=== PATIENT | female | born 1960 | race Caucasian/White ===

== ENCOUNTER → 2018-09-03 08:07 | Outpatient (CLI) | payer OTHER, SELFPAY | PROVIDERS: PCP Physician Assistant; Visit Provider Physician Assistant | DX: Z12.31 Encounter for screening mammogram for malignant neoplasm of breast (principal); Z53.9 Procedure and treatment not carried out, unspecified reason ==

== ENCOUNTER → 2018-09-29 08:36 | Outpatient (CLI) | payer OTHER, SELFPAY ==
--- NOTE | 2018-09-29 08:37 | DI.MG.S_ITS ---
BILATERAL DIGITAL DIAGNOSTIC MAMMOGRAM 3D/2D: 09/29/2018 CLINICAL: Left breast pain. Comparison is made to exams dated: 01/17/2017 mammogram, 08/05/2015 mammogram, and 04/24/2013 mammogram - [facility]. There are scattered fibroglandular elements in both breasts. There are benign round calcifications in both breasts. No significant masses, calcifications, or other findings are seen in either breast. IMPRESSION: INCOMPLETE: NEEDS ADDITIONAL IMAGING EVALUATION There is no abnormality seen in the left breast to correspond with the area of clinical concern and pain, however, ultrasound is recommended which is scheduled to immediately follow this exam. This exam was interpreted at Station ID: [id number]. NOTE: For mammograms, a report in lay terms will be sent to the patient. Approximately 15% of breast malignancies will not be visualized mammographically. In the management of a palpable breast mass, a negative mammogram must not discourage biopsy of a clinically suspicious lesion. Electronically Signed By: Contreras Cannon M.D. aty/:09/29/2018 09:16:31 copy to: Yazmin DODD BI-RADS Category 0: Incomplete [id number]
--- NOTE | 2018-09-29 08:37 | DI.US.S_ITS ---
LIMITED ULTRASOUND OF LEFT BREAST: 09/29/2018 CLINICAL: Diffuse left breast pain. Comparison is made to exams dated: 09/29/2018 mammogram - [facility], 01/17/2017 mammogram, 08/05/2015 mammogram, and 04/24/2013 mammogram - [facility]. Real-time ultrasound of the left breast upper inner, upper outer, and lower outer quadrants, and retroareolar regions was performed on the area of interest. No discrete cystic or solid mass lesion identified in the area of pain. IMPRESSION: NEGATIVE There is no sonographic evidence of malignancy. There is no abnormality seen in the left breast to correspond with the pain, however, clinical followup is recommended. A 1 year screening mammogram is recommended. This exam was interpreted at Station ID: [id number]. Electronically Signed By: Bhavik chavira/:09/29/2018 11:12:42 copy to: Yazmin Pink letter sent: Clinical Evaluation Ultrasound BI-RADS: 1 Negative
[2018-10-02 15:45] LABS: Rubeola Measles IgG < 25.00 AU/mL (< 25.00)
== END ==
PROVIDERS: PCP Physician Assistant; Visit Provider Physician Assistant
DX: R92.8 Other abnormal and inconclusive findings on diagnostic imaging of breast (principal); N64.4 Mastodynia; Z01.84 Encounter for antibody response examination
CPT/HCPCS: 36415; 76642; 77066; 86765; G0279

== ENCOUNTER → 2021-09-27 10:04 | Outpatient (CLI) | payer OTHER, SELFPAY ==
--- NOTE | 2021-09-27 10:05 | DI.MG.S_ITS ---
BILATERAL DIGITAL DIAGNOSTIC MAMMOGRAM 3D/2D SHORT-TERM FOLLOW-UP: 09/27/2021 CLINICAL: Short term follow up of the left breast, due for bilateral imaging. Comparison is made to exams dated: 08/15/2020 mammogram, 07/26/2020 mammogram - [facility], and 09/29/2018 mammogram - [facility]. There are scattered fibroglandular elements in both breasts. There is a stable focal asymmetry in the left breast at 7 o'clock middle depth. No other significant masses, calcifications, or other findings are seen in either breast. IMPRESSION: PROBABLY BENIGN The stable focal asymmetry in the left breast is probably benign. A follow-up mammogram and possible ultrasound in 12 months is recommended to ensure stability. This exam was interpreted at Station ID: [id number]. NOTE: For mammograms, a report in lay terms will be sent to the patient. Approximately 15% of breast malignancies will not be visualized mammographically. In the management of a palpable breast mass, a negative mammogram must not discourage biopsy of a clinically suspicious lesion. Electronically Signed By: Deandra Hayes M.D. lk/:09/27/2021 11:18:06 copy to: Yazmin Pink letter sent: Followup Recommended ACR BI-RADS Category 3: Probably benign [id number]
== END ==
PROVIDERS: PCP Physician Assistant; Referring Provider Physician Assistant; Visit Provider Physician Assistant
DX: R92.8 Other abnormal and inconclusive findings on diagnostic imaging of breast (principal); N64.89 Other specified disorders of breast
CPT/HCPCS: 77066; G0279

== ENCOUNTER → 2022-07-17 16:34 | Outpatient (CLI) | payer OTHER, SELFPAY ==
--- NOTE | 2022-07-17 | DI.US.S_ITS ---
PROCEDURE: US CAROTID DOPPLER BI INDICATIONS: CAROTID ARTERY CALCIFICATION TECHNIQUE: Color and pulse Doppler interrogation was performed of both carotid systems, with image documentation and velocity measurements. COMPARISON: None. FINDINGS: Stenosis calculations are based on SRU (Society of Radiologists in Ultrasound) criteria. The flow velocities and the arterial waveforms are normal within both carotid arterial systems. Mild atherosclerotic plaque is seen on both sides. The estimated degree of internal carotid artery stenosis is less than 50%. Antegrade flow is confirmed within both vertebral arteries. IMPRESSION: No hemodynamically significant stenosis is seen. Dictated by: Rosendo Valle M.D. on 07/17/2022 at 17:16 Approved by: Rosendo Valle M.D. on 07/17/2022 at 17:17
== END ==
PROVIDERS: PCP Physician Assistant; Referring Provider Physician Assistant; Visit Provider Physician Assistant
DX: I65.29 Occlusion and stenosis of unspecified carotid artery (principal)
CPT/HCPCS: 93880

== ENCOUNTER → 2022-09-21 16:00 | Outpatient (CLI) | payer OTHER, SELFPAY | PROVIDERS: PCP Physician Assistant; Visit Provider Obstetrics & Gynecology | DX: N76.4 Abscess of vulva (principal) | CPT/HCPCS: 87070; 87205 ==

== ENCOUNTER → 2023-12-06 09:08 | Outpatient (CLI) | payer OTHER, MEDICARE, SELFPAY | LOC: WC 09:24 | PROVIDERS: Referring Provider Dermatology; Visit Provider Physician Assistant | DX: T81.31XA Disruption of external operation (surgical) wound, not elsewhere classified, initial encounter (principal); S81.001A Unspecified open wound, right knee, initial encounter; L53.8 Other specified erythematous conditions; D03.9 Melanoma in situ, unspecified | CPT/HCPCS: 11042; 87070; 87075; 87205; 99204; 99214 ==

== ENCOUNTER → 2023-12-20 09:25 | Outpatient (CLI) | payer OTHER, MEDICARE, SELFPAY | PROVIDERS: Referring Provider Dermatology; Visit Provider Physician Assistant | DX: S81.001A Unspecified open wound, right knee, initial encounter (principal); L98.8 Other specified disorders of the skin and subcutaneous tissue; L53.9 Erythematous condition, unspecified; D03.9 Melanoma in situ, unspecified; I10 Essential (primary) hypertension; E87.5 Hyperkalemia | CPT/HCPCS: 11042; 87070; 87075; 87205; 99213 ==

== ENCOUNTER → 2024-01-03 08:36 | Outpatient (CLI) | payer OTHER, MEDICARE, SELFPAY | LOC: WC 08:38 | PROVIDERS: Referring Provider Dermatology; Visit Provider Physician Assistant | DX: T81.89XA Other complications of procedures, not elsewhere classified, initial encounter (principal); S81.001A Unspecified open wound, right knee, initial encounter; L98.8 Other specified disorders of the skin and subcutaneous tissue; L53.9 Erythematous condition, unspecified; D03.9 Melanoma in situ, unspecified | CPT/HCPCS: 11042; 99213 ==

== ENCOUNTER → 2024-01-10 09:42 | Outpatient (CLI) | payer MEDICARE, SELFPAY | LOC: WC 09:45 | PROVIDERS: Referring Provider Dermatology; Visit Provider Physician Assistant | DX: T81.89XA Other complications of procedures, not elsewhere classified, initial encounter (principal); S81.001A Unspecified open wound, right knee, initial encounter; L98.8 Other specified disorders of the skin and subcutaneous tissue; I10 Essential (primary) hypertension; E78.5 Hyperlipidemia, unspecified | CPT/HCPCS: 11042; 99213 ==

== ENCOUNTER → 2024-01-20 08:55 | Outpatient (CLI) | payer MEDICARE, SELFPAY | PROVIDERS: Referring Provider Dermatology; Visit Provider Surgery | DX: T81.89XD Other complications of procedures, not elsewhere classified, subsequent encounter (principal); S81.001D Unspecified open wound, right knee, subsequent encounter | CPT/HCPCS: 99213 ==

== ENCOUNTER → 2024-06-23 13:56 | Outpatient (CLI) | payer MEDICARE, SELFPAY ==
--- NOTE | 2024-06-23 13:59 | DI.MG.S_ITS ---
MM screening mammo BI: 06/23/2024. BI-RADS: 2 CLINICAL: 63-year old female for bilateral screening mammogram. Tyrer-Cuzick lifetime risk of 7.3%. Current reported family history of breast cancer: mother. The patient is status-post reduction mammoplasty. PRIOR EXAMS 10-04-22, 09/27/2021, 08/15/2020, 07/26/2020, 09/29/2018. MAMMOGRAPHY TECHNIQUE: 2D and 3D (tomosynthesis) digital mammographic views obtained, with additional images as needed for full coverage. Current study was also evaluated with a Computer Aided Detection (CAD) system. DENSITY A. The breasts are almost entirely fatty. MAMMOGRAPHY FINDINGS Bilateral: Benign-appearing calcifications noted. No suspicious finding with benign findings noted. IMPRESSION: * No evidence of malignancy with benign findings. RECOMMENDATIONS Bilateral * Annual screening mammography. OVERALL ASSESSMENT CATEGORY BI-RADS-2: Benign. The [employer] recommends annual screening mammography beginning at age 40 for women with average risk of breast cancer. ELECTRONICALLY SIGNED: Ben Diaz M.D. on 06/23/2024 at 04:07:21 PM Interpreting Station ID: [id number]
== END ==
PROVIDERS: PCP Physician Assistant; Referring Provider Physician Assistant; Visit Provider Physician Assistant
DX: Z12.31 Encounter for screening mammogram for malignant neoplasm of breast (principal); Z80.3 Family history of malignant neoplasm of breast
CPT/HCPCS: 77063; 77067

== ENCOUNTER → 2024-08-12 10:48 | Outpatient (CLI) | payer MEDICARE, BC, SELFPAY ==
--- NOTE | 2024-08-12 10:49 | DI.RAD.S_ITS ---
PROCEDURE: XR DEXA AXIAL SKELETON INDICATIONS: SCREENING COMPARISON: None. FINDINGS: Lumbar Spine: Bone mineral density 1.419 g/cm2, T score 3.4. Left Femoral Neck: Bone mineral density 0.824 g/cm2, T score -0.2. Left Hip: Bone mineral density 1.065 g/cm2, T score 1.0. Fracture Risk Calculation (when applicable): 10-year fracture risk of a major osteoporotic fracture 6.7 percent and of a hip fracture 0.3 percent. (T score greater or equal to -1.0 to: NORMAL) (T score from -1.1 to -2.4: OSTEOPENIA) (T score less than or equal to -2.5: OSTEOPOROSIS) IMPRESSION: 1. Normal bone density of the lumbar spine. 2. Normal bone density of the left hip and femoral neck. Follow-up guidelines as follows: Osteoporosis: Consider a repeat DEXA and Vertebral Fracture Assessment (VFA) exam in 2 years or sooner if medically necessary, to reassess this patient's status. Osteopenia: Consider a repeat DEXA in 2-3 years to reassess this patient's status, or if there is a new clinical indication. Normal: Consider a repeat DEXA in 5 years or sooner, or if there is a new clinical indication. All treatment decisions require clinical judgment and consideration of individual patient factors, including patient preferences, comorbidities, previous drug use, risk factors not captured in the FRAX model (e.g., frailty, falls, vitamin D deficiency, increased bone turnover, interval significant decline in bone density ) and possible under- or over-estimation of fracture risk by FRAX. In addition, the NOF Guide recommends that FDA-approved medical therapies be considered in postmenopausal women and men age >= 50 years with a: * Hip or vertebral (clinical or morphometric) fracture * T-score of <=-2.5 at the spine or hip * Ten-year fracture probability by FRAX of >= 3% for hip fracture or >=20% for major osteoporotic fracture. Dictated by: Hitesh Hinds M.D. on 08/12/2024 at 12:27 Approved by: Hitesh Hinds M.D. on 08/12/2024 at 12:29
== END ==
PROVIDERS: PCP Physician Assistant; Referring Provider Physician Assistant; Visit Provider Physician Assistant
DX: Z78.0 Asymptomatic menopausal state (principal)
CPT/HCPCS: 77080

== ENCOUNTER → 2024-09-21 10:23 | Outpatient (CLI) | payer MEDICARE, BC, SELFPAY ==
[2024-09-21 13:34] LABS: Appearance Urine UA SL CLOUDY; Bilirubin Urine UA NEGATIVE (NEGATIVE); Color Urine UA YELLOW; Glucose Urine UA NEGATIVE (Negative); Ketones Urine UA NEGATIVE (NEGATIVE); Leukocyte Esterase Urine UA NEGATIVE (NEGATIVE); Nitrite Urine UA NEGATIVE (Negative); Occult Blood Urine UA NEGATIVE (Negative); Protein Urine UA NEGATIVE (Negative); Specific Gravity Urine UA 1.015 (1.000-1.035); Urobilinogen Urine UA 0.2 E.U./dL (0.2)
[2024-09-21 13:43] LABS: Bacteria Urine None Seen; RBC Urine None Seen (0-5/HPF); Squamous Epithelial Cell Urine None Seen (0-5/HPF); Urine Volume 10mL (spun); WBC Urine None Seen (0-5/HPF)
[2024-09-21 13:44] LABS: Amorphous Sediment Urine 1+; Culture Indicated Urine Cult Not Indicated
== END ==
PROVIDERS: PCP Physician Assistant; Visit Provider Obstetrics & Gynecology Gynecology
DX: N39.46 Mixed incontinence (principal); N81.10 Cystocele, unspecified; N81.6 Rectocele; N81.9 Female genital prolapse, unspecified
CPT/HCPCS: 81001

== ENCOUNTER 2024-11-23 06:28 | Day surgery (SDC) | payer MEDICARE, OTHER, SELFPAY ==
--- NOTE | 2024-11-17 17:26 | P.HPOB_ITS ---
History of Present Illness History of Present Illness Narrative: Brandie Kramer is a 63 year old female Date of procedure:?? Nov 23, 2024 Preoperative diagnosis:? cystocele vaginal vault prolapse rectocele stress incontinence Planned Procedure:?? robotic sacral colpopexy, mid urethral sling. Cystoscopy. possible posterior colporrhaphy, prefers to go home the same day Cystocele at +2 leading edge. Rectocele to the introitus but corrects with large swab. Suspect posterior repair not likely needed. No defecation symptoms Positive DIGITAL ACCOUNT MANAGER Postop Meds Tylenol 1000 mg, ?3 times a day? Motrin 600 mg , ? 3 times a day Oycodone 5 mg,? take 1 pill every 4-6 hr as needed, # 15?. ordered. ? Colace,? 1 pill BID, for constipation CC: Pelvic prolapse, incontinence. HPI: 63-year-old female who presents for evaluation of above complaint.?? She reports onset of symptoms several months ago.?? She considers this a? Moderate? problem. Considering surgery She has symptoms of pelvic organ prolapse and urinary incontinence. She reports doing lots of lifting lately. Helping other people move. The main thing she notices is a large vaginal bulge. She reports everything is falling out. She has pressure and heaviness symptoms. She does not splint to defecate or to void. She does have a feeling of incomplete bladder emptying and does strain to have a bowel movement. Has to change body positions in order to defecate. She has a prior TLH, BSO, 2008, for fibroids and endometriosis. Using estradiol patch. Recent exam by Dr. Howell shows significant prolapse with a cystocele, rectocele, vaginal vault prolapse, grade 2-3. Also showed a positive cough stress test, indicating stress incontinence She also has [id number] stress incontinence and urge incontinence. She has stress incontinence 0-2 times per day. Triggers below. She has urge incontinence 0 to 2 times a day, usually mild amounts. But once every 2 weeks, she has to change her clothes. She uses 1 mini pad a day. Overall, the prolapse is a larger bothered her than the incontinence. She has some overactive bladder symptoms, mild, voids every 1-3 hours in the daytime. Once to twice at night. Her bowel movements can vary from 1-3 a day, sometimes every 3-4 days. Told her that when she has a surgery that she should do a bowel prep 2 days before the surgery so that she does not go into surgery with possibly constipation for the prior 4 days. Active female. Walks 2 miles a day. Not sexually active presently but wants to be. Has done lots of lifting lately, helping people move prior hyst -yes -x2 c-sec -1 ? Pelvic Floor Review of Systems: (HPI) Stress Urinary Incontinence symptoms (KATE): 0-2 per day Triggers include:??? [cough, sneeze, laugh, exercise, lifting ? Urge Incontinence symptoms (Urge UI): 0-2 per day Triggers include:??? [Full bladder with urge,?? ? Pads: She wears 1 mini pad a day Overactive Bladder symptoms (OAB):? ? Frequency: Every 1-3 hours Nocturia: 1-2 ? Urgency: Yes, moderate Prior incontinence treatment includes:? Medical: No ? Surgical:? No ? Kegels:?? Yes Physical therapy:?No? Pessary:?No? Diet / Fluids: Fluid restriction:? No Excessive fluids:?No Pain symptoms:? Painful bladder:???No Dysuria:???No Dyspareunia:? No Dysmenorrhea:? No Urinary Risk Factors UTI?s, recurrent: No Hematuria:? No Kidney Stones:?No? Tobacco use:? No Pelvic Organ Prolapse (POP) symptoms:?? Bulge: Yes Pressure and /or Heaviness: Yes Splint for defecation or voiding: No Voiding dysfunction: Abnormal stream:?No Strain to void:? No Incomplete emptying: Yes Voiding difficulty:?No Retention:??? No Bowel Function: Constipation: Sometime Strain to defecate: Your Fiber: No Laxatives: No Fecal Incontinence:? Liquid stool:? No Solid stool:?No?? Sexually active:?No, but wants to be Incontinence with sex:? No ? General Review of Systems: Constitutional, CV, Endo, Musc-skel, Eyes, Cancer, Skin, Breast, GI, Heme/Lymph, Psych, Urinary, Neuro, Operational Intelligence Officer, Resp, Sexual:??? Pertinent positives listed above in HPI All others reviewed and negative. All reviewed on patient questionnaire.? . . PFSH Allergies No Known Allergies Allergy (Uncoded 09/21/24 08:15) Medications [LORATADINE] 10 mg PO QDAY ##0 12/31/16 [History Confirmed 09/21/24] [SUPER B COMPLEX] 1 tab PO QDAY ##0 12/31/16 [History Confirmed 09/21/24] [VITAMIN D3] 1,000 iu PO BID ##0 12/31/16 [History Confirmed 09/21/24] acetaminophen 500 mg tablet (Tylenol Extra Strength) 1,000 mg PO HS ##0 12/31/16 [History Confirmed 09/21/24] omega-3 acid ethyl esters 1 gram capsule (Lovaza) 1 cap PO BID #180 caps 09/29/18 [Rx Confirmed 09/21/24] losartan 100 mg tablet 100 mg PO QDAY #90 tabs 06/02/19 [Rx Confirmed 09/21/24] simvastatin 20 mg tablet 40 mg PO HS 09/21/22 [History Confirmed 09/21/24] estradiol 0.05 mg/24 hr semiweekly transdermal patch 1 patch topical 2XW #24 patches 02/19/24 [Rx Confirmed 09/21/24] estradiol 10 mcg vaginal tablet (Yuvafem) 10 mcg vaginal 2XW #8 tabs 08/19/24 [Rx Confirmed 09/21/24] Medical History (Updated 09/21/24 @ 18:41 by Tavo Calhoun MD) Stress incontinence, female Rectocele Cystocele, midline Chicken pox Painful menstrual periods Herpes (~1976) Heavy menstrual period (~1972) Fibroids (~1998) History of urinary incontinence Hypertension (Unknown) Hyperlipemia (Unknown) Foot pain (03/2015) Ankle pain (03/2015) Basal cell carcinoma (10/2014) Mixed hyperlipidemia (05/28/17) History of basal cell carcinoma (BCC) (~2009) Essential hypertension Surgical History (Updated 10/02/22 @ 13:58 by Afia Ribeiro) Anesthesia History of foot surgery (~2015) Status post breast reduction (~2013) Status post hysterectomy with oophorectomy (~05/2009) Status post delivery Status post laparoscopic cholecystectomy Family History (Updated 10/02/22 @ 14:00 by Afia Ribeiro) Brother Age: 80 Hyperlipidemia Recovering alcoholicFather Dementia Myocardial infarction Hyperlipidemia HypertensionMother Dementia Breast cancer HypertensionSister Age: 62 HyperlipidemiaFamily/Other Crohn's diseaseOther Family history of cardiac disorder Family history of hyperlipidemia Social History marital status: household members: spouse lives independently: Yes caregiver/support person: No Tobacco & Substance Use Smoking Status: Never smoker second hand exposure: No alcohol intake: current (wine once or twice a week. I'll have vodka on the rocks a couple times a month) substance use type: does not use Diet and Exercise Type(s) of exercise: walking Exam Vitals 09/22/2507:16 Height 5 ft 10 in Weight 235 lb BMI 33.7 BP 140/82 Blood Pressure Location Lt brachial Position Sitting Narrative: General: healthy, alert, coherent, no acute distress, cooperative, nontoxic Pulmonary: normal breathing, no distress Abdomen: soft, no mass, non-distended, no hernia, non-tender Skin: Scars on Abd: Laparoscopy 5 ft 11, 237 lb, BMI 33.7 Vulva: Normal labia majora, labia minora, introitus, and clitoris, non-tender Urethra meatus: normal, no discharge Perineum: Normal, non-tender Urethra: No mass, non-tender Bladder: no mass, non-tender Vagina: No lesions, no discharge, minimal atrophy, non-tender Prolapse with stage II cystocele, stage II rectocele, stage I vault, they all correct with insertion of a large swab, this indicates robotic sacral colpopexy we will correct her prolapse best Levators: Non-tender, Prior hysterectomy Bimanual: no mass, no adnexal mass, non-tender Anus: No lesion, non-tender, no hemorrhoid Empty Cough Stress test: Neg Prior exam demonstrated urine leakage with Valsalva and with cough PVR: 20 mL by catheter Urethral angle hypermobile: Yes Pelvic Organ Prolapse: Yes POP-Q Exam: Aa: 0 Ba: +2 Ap: 0 Bp: 0 C: -7 D: Not applicable TVL: 10 GH: 5 PB: 3.5 Introitus size: 3 fingerbreadths Cystocele stage: 3 Rectocele stage: 2 Uterine/Vault Prolapse Stage: 1 Assessment & Plan (1) Cystocele, midline: Status: Acute (2) Vaginal vault prolapse: Status: Acute (3) Rectocele: Status: Acute (4) Stress incontinence, female: ? Patient counseled regarding above conditions.? Educational materials given to patient. 1. Pelvic Organ Prolapse - Stage 3, cystocele, rectocele, vaginal vault.? This diagnosis and its etiology was discussed with the patient.? Treatment options were discussed including: expectant management, pessary trial, and surgical intervention. We briefly discussed risks and benefits of surgery. All surgery for prolapse is not 100% successful and there is a chance of recurrence or failure. [She declines a Pessary Trial for Prolapse she desires surgery my recommendation = robotic sacral colpopexy, posterior colporrhaphy, mid urethral sling. Cystoscopy. see below for counseling 2. Stress Urinary Incontinence with urethral hypermobility:? This diagnosis was discussed with the patient. The etiology was explained. Treatment options were discussed including expectant management, pelvic floor exercises, pessary trial, and surgical intervention (mid-urethral sling, Manzo urethropexy, P-V sling, Sarah urethral plication, urethral bulking injection).? Risks and benefits of surgery were briefly outlined. We discussed that she is a candidate for a Midurethral Sling as treatment of her stress incontinence. Success rate of being dry from stress incontinence is about 80-85%; another 10-15% of patients are markedly improved but not cured;? 1-2% will fail, and 1-2% will need the sling cut because it is too tight.? The risk of temporary urinary retention requeiring temporary catheterization is about 15-20%; risk of urinary retention requiring sling release procedure is about 1-2%, as noted above.? We discussed the small 1-3% of mesh erosion as well as the small risk of de perlita urgency.? This procedure is not designed to treat Urge Incontinence symptoms; however, 30-50% of patients with overactive bladder/ urgency urinary incontinence will have improvement in these symptoms, in 30% these symptoms will stay the same, and in 20-30% these symptoms will worsen. Surgical Counselling Note Patient seen for surgical counselling.? She desires surgical repair. Please see? H & P for exam and discussion. Date of procedure:?? Nov 23, 2024 Preoperative diagnosis:? cystocele vaginal vault prolapse rectocele stress incontinence Planned Procedure:?? robotic sacral colpopexy, mid urethral sling. Cystoscopy. possible posterior colporrhaphy, prefers to go home the same day Postop Meds Tylenol 1000 mg, ?3 times a day? Motrin 600 mg , ? 3 times a day Oycodone 5 mg,? take 1 pill every 4-6 hr as needed, # 15?. ordered. ? Colace,? 1 pill BID, for constipation Patient counseled extensively about the Risks, Benefits, and Alternatives to surgery.? She was offered the opportunity to ask any questions, and all questions were answered. ? Surgical Risks include: Bleeding, Hemorrhage, Transfusion, Infection (especially wound or bladder), Injury to adjacent organs (especially bladder, ureter, bowel, blood vessels, nerves), Postop or Chronic Pain, need for Reoperation, and Life-threatening event (especially M.I., CVA, PE, DVT). Procedure Risks include: Failure to Cure condition, Recurrence of condition months or years later, Urinary incontinence, Voiding dysfunction or Urinary Retention with prolonged catheter use, Poor wound healing, Erosions of any mesh or graft used, Dyspareunia, Vaginal scarring or narrowing, Need for additional surgery (immediate or delayed).? The expected cure and improvement and failure rates were discussed. Patient counseled to avoid the following for 6 weeks after surgery: (1) Impact sports (like running or jumping), walking and stairs OK (2) Lifting over 20# (3) Sexual intercourse No limits after 6 weeks. ? Good exercise tolerance, > 4 Mets. Her current medications were reviewed, and instructions given over which to use and which to discontinue before surgery.? Post-operative care instructions reviewed.? We discussed post-operative pain: Pain should be in the mild-moderate range, but can be moderate-severe for the first few days.?? Prescriptions will typically be given for (1) acetaminophen (Tylenol) and (2) non-steroidal anti-inflammatory drug (NSAID, like Motrin or Naprosyn), use both together, around the clock. Prescription will also be given for a (3) narcotic pain medication. Use the narcotic as needed, as a booster to the Tylenol and NSAID. You might need 0-4 narcotic pills a day typically. The narcotic will only be needed for a few days.?? Gradually use less of the narcotic, but continue the Tylenol and NSAID.? After a few days, the narcotic should no longer be needed, and only the Tylenol and NSAID will be needed.? Warm packs or cold packs can also be used for pain.??Do not drive for as long as you are using the narcotic pain medication? - this should only be a few days.?? Constipation is associated with use of narcotic pain medications, and can be improved with use of a stool softener, or fiber, or a mild laxative.? All of her questions were answered Tavo Calhoun MD UroGynecology & Pelvic Reconstructive Surgery [facility] Medical History (Updated 09/21/24 @ 18:41 by Tavo Calhoun MD) Stress incontinence, female Rectocele Cystocele, midline Chicken pox Painful menstrual periods Herpes (~1976) Heavy menstrual period (~1972) Fibroids (~1998) History of urinary incontinence Hypertension (Unknown) Hyperlipemia (Unknown) Foot pain (03/2015) Ankle pain (03/2015) Basal cell carcinoma (10/2014) Mixed hyperlipidemia (05/28/17) History of basal cell carcinoma (BCC) (~2009) Essential hypertension Surgical History (Updated 10/02/22 @ 13:58 by Afia Ribeiro) Anesthesia History of foot surgery (~2015) Status post breast reduction (~2013) Status post hysterectomy with oophorectomy (~05/2009) Status post delivery Status post laparoscopic cholecystectomy Family History (Updated 10/02/22 @ 14:00 by Afia Ribeiro) Brother Age: 80 Hyperlipidemia Recovering alcoholic Father Dementia Myocardial infarction Hyperlipidemia Hypertension Mother Dementia Breast cancer Hypertension Sister Age: 62 Hyperlipidemia Family/Other Crohn's disease Other Family history of cardiac disorder Family history of hyperlipidemia Social History marital status: household members: spouse lives independently: Yes caregiver/support person: No second hand exposure: No alcohol intake: current (wine once or twice a week. I'll have vodka on the rocks a couple times a month) substance use type: does not use Type(s) of exercise: walking Meds Home Medications and Allergies Home Medications ?Medication ?Instructions ?Recorded ?Confirmed ?Type [LORATADINE] 10 mg PO QDAY ##0 12/31/16 0 09/21/24 History [SUPER B COMPLEX] 1 tab PO QDAY ##0 12/31/16 0 09/21/24 History [VITAMIN D3] 1,000 iu PO BID ##0 12/31/16 09/21/24 History acetaminophen 500 mg tablet 1,000 mg PO HS ##0 7 09/21/24 History (Tylenol Extra Strength) omega-3 acid ethyl esters 1 gram 1 cap PO BID #180 cap s 09/29/18 09/21/24 Rx capsule (Lovaza) losartan 100 mg tablet 100 mg PO QDAY #90 tabs 05/2309/21/24 Rx simvastatin 20 mg tablet 40 mg PO HS 09/21/22 5 History estradiol 0.05 mg/24 hr semiweekly 1 patch topical 2XW #24 patches 02/19/24 09/21/24 Rx transdermal patch estradiol 10 mcg vaginal tablet 10 mcg vaginal 2XW #8 tabs 08/19/24 09/21/24 Rx (Yuvafem) oxycodone 5 mg tablet 5 mg PO Q6H PRN postop pain #15 11/11/24 11/11/24 Rx tabs Allergies Allergy/AdvReac Type Severity Reaction Status Date / Time No Known Allergies Allergy Uncoded 09/21/24 08:15 Assessment & Plan Assessment and plan (1) Cystocele, midline: Status: Acute (2) Vaginal vault prolapse: Status: Acute (3) Rectocele: Status: Acute (4) Stress incontinence, female: Status: Acute Time-Based Coding :: [TOTAL MINUTES] spent with patient and on the chart (including review of chart, obtaining history, exam, reviewing outside data, placing orders, documenting exam and treatment plan, and counseling patient) on [DATE].
[2024-11-18 09:02] VITALS: BMI 33.7
[2024-11-23] VITALS (20 sets, daily range): BP systolic 101–131; BP diastolic 55–86; PULSE 84–881; RESP 10–18; TEMP 35.9–37; O2SAT 2–97; BMI 32.3
[2024-11-23] MEDS: ACETAMINOPHEN 325 MG TABLET 975 MG PO ×2 (07:03→18:31)
[2024-11-23] MEDS: LACTATED RINGERS 1,000 ML 42 ML IV ×4 (07:04→20:49)
[2024-11-23] MEDS: PHENAZOPYRIDINE 100 MG TABLET 200 MG PO (07:04)
[2024-11-23] MEDS: GABAPENTIN 300 MG CAPSULE PO (07:04)
[2024-11-23] MEDS: SCOPOLAMINE 1 PATCH TOP (07:05)
[2024-11-23 07:20] LABS: Add Manual Diff / Slide Review NO; Hematocrit 39.3 % (36-46); Hemoglobin 13.4 g/dL (12.0-16.0); Lymphocytes Absolute Auto 1800 /uL (1100-4500); Mean Corpuscular HGB Conc 34.0 % (30-36); Mean Corpuscular Hemoglobin 32.0 PG (26-34); Mean Corpuscular Volume 94.1 fL (80-100); Platelet Count 293 X10^3/uL (150-400)
[2024-11-23] MEDS: ONDANSETRON 4 MG/2 ML INJ IV (07:28)
[2024-11-23 07:31] LABS: Alanine Aminotransferase 32 IU/L (<35); Albumin 4.8 g/dL (3.5-5.0); Albumin Globulin Ratio 1.4 (1.0-2.8); Alkaline Phosphatase 88 U/L (38-126); Blood Urea Nitrogen 16 mg/dL (7-17); Calcium 9.2 mg/dL (8.4-10.2); Carbon Dioxide 21 mmol/L (22-32); Chloride 104 mmol/L (98-107); Estimated Glomerular Filt Rate > 60 mL/min (>60); Globulin 3.4 g/dL (1.7-4.1); Glucose 99 mg/dL (70-99); HEMOLYSIS < 15 (0-50); Potassium 4.2 mmol/L (3.4-5.1); Sodium 138 mmol/L (137-145); Total Protein 8.2 g/dL (6.3-8.2)
--- NOTE | 2024-11-23 07:35 | PM.PREOP ---
Pre-operative Note Interval Note History & Physical reviewed/Exam performed by Physician: Yes Changes to H&P: No
[2024-11-23] MEDS: CEFAZOLIN 2 GM/100 ML PREMIX 100 ML IV ×2 (07:46→11:23)
--- NOTE | 2024-11-23 08:20 | SUR.OPER ---
Lithotomy on padded OR bed. [place] Pad Positioner under torso. Head on pillow, arms padded and tucked at sides. Legs secured in padded yellow fins stirrups. Dr. Calhoun in room to assist and approve final position. All pressure points padded and covered.
[2024-11-23] MEDS: BUPIVACAINE 0.25% W/ EPI 30 ML VIAL INJ (08:27)
[2024-11-23] MEDS: LIDOCAINE 1% 20 ML INJ (11:08)
[2024-11-23] MEDS: SODIUM CHLORIDE 0.9% 50 ML 20 ML INJ (11:09)
--- NOTE | 2024-11-23 11:45 | PM.GYNOP.1 ---
Operative Date/Time/Diagnoses Date of procedure: 11/23/24 Time of procedure: 08:15 Pre-op diagnosis: vaginal vault prolapse, cystocele, rectocele, stress incontinence Post-op diagnosis: same Procedure & Clinicians Procedure: Procedures Operation Date: 11/23/24 07:45 Actual Procedure Side Surgeon p Robotic Sacral colpopexy Tavo Calhoun MD s Mid urethral sling, cystoscopy Tavo Calhoun MD Operative Notes Findings: Operative Note Surgeon:? Tavo Calhoun MD Grinder Set Up Operator Centerless:?? Neida Ocasio MD Pre-Op Diagnosis:?? Vaginal vault prolapse, cystocele, rectocele, stress urinary incontinence Post-Op Diagnosis:?? Same? Procedure:?? Robotic assisted laparoscopic sacral colpopexy, TVT sling, cystoscopy Findings (brief): 1. 5 ports, usual fashion.?? No Adhesions. Prior hyst, BSO. Difficult dissection of the posterior vagina, unusually thin mid posterior vagina, with small 1 cm vaginotomy in the mid posterior vagina, repaired with running 2-0 vicryl. ? 2.? Restorelle mesh cut to 5 cm Ant and 8 cm Post, attached to vagina with sutures of 2-0 vicyrl.?? Excellent support of all 3 compartments.?min EBL on the RobSC.? 3.? TVT sling placed at mid-urethra, tension-free.??350 cc EBL on the sling.???Vag pack placed, to remove in PACU. 4.? Cystoscopy with normal bladder, ureters, urethra, no trocar injury, bilateral ureteral jets.? Date of Surgery:? 11/23/2024 Complications:? none Specimens:? none Anesthesia Technique:?? General endotracheal Estimated Blood Loss (mls):? 350 Blood Replacement (mls):? none Drains:? Young Condition:? Stable Procedure in detail: After consent was confirmed, the patient was taken to the operating room and?positioned with the Sipsey Pad on the OR bed, and then placed under general anesthesia without incident. ?Sequential compression devices were in place and active. ?She received perioperative antibiotics. ?The arms were tucked and her legs were placed in the dorsal lithotomy position using the Kwadwo stirrups. ??She was then prepped and draped in the usual sterile fashion. ?An examination under anesthesia was consistent with the preoperative assessment. ?A three-way 16 kittitian young catheter was placed. ?Attention was turned to the abdomen. All 5 trocar sites were injected with 0.25% Marcaine with epinephrine prior to incision. A supra-umbilical 8?mm port was placed 2-3 cm above the umbilicus: a 8?mm incision was made, the Veress needle was placed, and pneumoperitoneum was achieved at low flow of 5, reaching a pressure of about 12, with 2-3 liters of CO2 gas. ?The abdominal wall was tented out to avoid any injury to underlying structures, and the trocar was introduced into the abdomen with ease, flow turned up to 40, pressure set at 12. ??Three?additional 8 mm robotic ports were placed, along the same line across the abdomen: ?? right lateral abdomen, left mid abdomen, left lateral abdomen,?under direct visualization atraumatically.??An additional legal executive assistant 8 mm port was placed in the RUQ.?The patient was placed into steep Trendelenberg. ?The DV5?robot was Docked from a side-dock approach, using 3 arms. ?During the dissection, monopolar scissors and bipolar [place]?forceps were used, and during suturing, these were replaced with 2 needle drivers. ?The SpeechTrans grasper was used at the 3rd arm for surgical assistance. ?The 4th port was for the surgical garment fitter (passing sutures and suction / irrigation). ?At this point, I went to the robotic console to operate the robot.? ?The sigmoid was retracted, and the sacral promontory was identified, and the ureters were identifed lateral to the intended surgical planes.? No Adhesions. Prior hyst, BSO. ? The bladder was dissected off the vagina for a distance of 5 cm, and the vagina was dissected off the posterior peritoneum, most of the way down the posterior vagina, approx 8 cm. ??Difficult dissection of the posterior vagina, unusually thin mid posterior vagina, with small 1 cm vaginotomy in the mid posterior vagina, repaired with running 2-0 vicryl. The Sean Surgical Sacral Colpopexy tip with the Elena Arch was used to expose the vagina for dissection. ?Retrograde fill of the bladder facilitated the dissection. ?The peritoneum over the sacral promontory was incised and the dissection was carried down into the pelvis. ?The loose areolar connective tissue overlying the sacral promontory was dissected until the sacrum was clearly identified. ?The anterior arm of the Y-polypropylene mesh was fashioned as noted above, and sutured to the anterior vagina with several interrupted 2-0 vicryl sutures. ?The posterior arm of the mesh was fashioned as noted above, and sutured to the posterior vagina with several interrupted 2-0 vicryl sutures. ?The mesh tail was grasped to create a Y shape, cut to the appropriate length, and then attached to the sacral promontory in a tension-free manner, using 2 sutures of 2-0 Ethibond (permanent suture). The sacral peritoneum was closed over the mesh with a running 2-0 PDS / V-Lock suture, and then continued to close the peritoneum over the vaginal part of the mesh. I left the console and scrubbed and gowned and returned to the OR table. The robot was undocked. All port sites were inspected for hemostasis, and pneumoperitoneum released. The skin incisions were reapproximated with 4-0 monocryl, and then dermabond was placed. ?Attention was turned to the remainder of the vagina where excellent apical support was appreciated. ?Cystourethroscopy was performed which revealed bilateral ureteral efflux of pyridium and no evidence of injury or suture material within the bladder urethra. With the Young catheter in place, the anterior vaginal mucosa beneath and lateral to the urethra was injected with 10-20 cc of? 0.5% lidocaine / epinephrine 1:200,000.? A 2-3 cm midline incision was made at the level of the midurethra with a scapel. Metzenbaum scissors were used to dissect the vagina from the urethra and then create tunnels beneath the vaginal mucosa up toward the pubic bone on each side.? A marking pen was used to constanza the skin just above the pubic bone and 2 cm from the midline bilaterally, and two small 8-10 mm incisions were made on the suprapubic skin.? The trocar was passed from the right vaginal tunnel, behind the pubic bone, to the right suprapubic incision, and this was repeated on the left side.? The Young catheter was removed, and cystoscopy was performed with a 70 degree lens. There was no trocar injury, and the bladder, ureters, and urethra were normal.? The Young catheter was reinserted.? The sling was pulled into position in a tension-free manner, and a Sarah clamp was easily passed between the sling and the urethra.? The plastic sheaths were removed to anchor the sling, and tension was checked again. The ends of the sling were trimmed just below the skin, and the skin incisions were cleaned and closed with dermabond. The vaginal incision was closed with 2-0 vicryl in a running fashion. Sponge, needle and instrument count was correct.? The patient tolerated the procedure well and was taken to the recovery room in stable condition. Tavo Calhoun MD UroGynecology & Pelvic Reconstructive Surgery [place], [place] Applied: implant(s) (sling)
[2024-11-23] MEDS: OXYCODONE IR 5 MG TABLET PO ×2 (12:36→13:38)
--- NOTE | 2024-11-23 13:02 | SUR.PHASEII ---
Spouse at bedside.
--- NOTE | 2024-11-23 13:09 | SUR.PHASEII ---
preg test deferred...Pt states she is not sexually active. ok'd per Dr James.
--- NOTE | 2024-11-23 13:10 | SUR.PHASEII ---
glucose deferred. pt not diabetic
--- NOTE | 2024-11-23 13:51 | SUR.PHASEII ---
1330 placed on bedpan after young dc'd. Unable to void at present.
--- NOTE | 2024-11-23 13:53 | SUR.PHASEII ---
1309 and 1310 notes charted in error on wrong pt.
--- NOTE | 2024-11-23 14:06 | SUR.PHASEII ---
Side rails up x 2 with call light in easy reach. at bedside. Sipping water and gingerale. No complaints voiced.
--- NOTE | 2024-11-23 16:57 | SUR.PHASEII ---
1600 - vaginal pkg removed. up to commode. still unable to void.
--- NOTE | 2024-11-23 17:08 | SUR.PHASEII ---
Dr Calhoun notified of pt need to stay overnight due to inability to void, reinsertion of catheter, and weakness and continued grogginess necessitating 1 person assist to WC to Toilet and back with nausea while sitting up.
--- NOTE | 2024-11-23 18:14 | SUR.PHASEII ---
Adams Turcios CRNA called and then here to see patient for right eye pain and irritation. Pt states it throbs when it is closed and feels like something is in there when it is open. Upon arrival in phase II patient stated she felt like her eye was so dry and she tried to open it and then it became irritating with the pain slowly increasing. See new orders from Adams Turcios CRNA.
[2024-11-23] MEDS: KETOROLAC 30 MG/ML VIAL 15 MG IV ×2 (18:30→23:39)
[2024-11-23] MEDS: OFLOXACIN 0.3% OPHTH 5 ML 1 DROPS EYE-RIGHT ×2 (18:45→20:39)
--- NOTE | 2024-11-23 19:39 | SUR.PHASEII ---
Pt transfered to the floor by this RN in stretcher at 1851. Pt able to stand and pivot to bed. Eye drops applied to right eye per MD order and gauze patch applied for comfort. SBAR report to Ernestina CARDENAS with update at bedside including Toradol and Acetaminophen doses. No change to incisions with no drainage and surgical glue intact. [place] draining well with urine yellow.
[2024-11-23] MEDS: GABAPENTIN 100 MG CAPSULE PO (20:49)
[2024-11-23] MEDS: DOCUSATE 100 MG CAPSULE PO (20:49)
[2024-11-24 01:00] VITALS: BP 110/52; PULSE 83; RESP 15; TEMP 36.9; O2SAT 95; O2SAT 96
[2024-11-24] MEDS: ACETAMINOPHEN 325 MG TABLET 975 MG PO ×2 (01:11→08:44)
[2024-11-24 04:00] VITALS: BP 100/58; PULSE 86; RESP 17; TEMP 37.1; O2SAT 95
[2024-11-24] MEDS: GABAPENTIN 100 MG CAPSULE PO (05:58)
[2024-11-24] MEDS: KETOROLAC 30 MG/ML VIAL 15 MG IV ×2 (05:58→11:50)
--- NOTE | 2024-11-24 07:08 | PC.NURSE ---
0635 Performed voiding trial as directed, instilled 300mls sterile water into bladder, removed young, Pt up to bsc to void with zero fluid return over 15 minutes. Young replaced as ordered without difficulty. Pt tolerated well.
[2024-11-24 08:00] VITALS: BP 123/66; PULSE 80; RESP 16; TEMP 36.5; O2SAT 97
[2024-11-24] MEDS: DOCUSATE 100 MG CAPSULE PO (08:43)
--- NOTE | 2024-11-24 13:03 | PC.NURSE ---
Feels ready to d/c to home today. Voiding trial this am was unsuccessful, going home with young. Discussed how to care for young, clean around meatus. Her spouse is a PA and worked at the hospital. They understand young cath care and cath hygiene. Got up and walked a short distance. Reviewed d/c paper work. Questions answered. Pt is to remove young on Saturday and if unable to void she is to call the office by 1;00pm. She and spouse verb understanding. Pt d/c to home via auto w/spouse. They had no concerns.
--- NOTE | 2024-11-24 14:11 | CM.DANOTE ---
B DCP Assessment note pt is a 63yo F here POD1 robotic sacral colpopexy/mid uretheral sling cystoscopy with Dr. Calhoun PCP Yazmin Shannon Payer Medicare and premera [employer] reviewed EMR per chart, pt was set to dc yesterday but failed voiding trial will dc today with young cath and will f/u with provider in OP setting per chart review, pt lives with spouse in [place]. indep at baseline. per chart review/RN report no obvious CM needs P: dc today with spouse support and OP f/u no identified barriers to safe dc home at this time will continue to follow in case any arise Marizol haider [facility] [place] Discharge Planning/Care Management CM Discharge Assessment Start: 11/23/24 17:57 Freq: Status: Discharge Protocol: Document 11/24/24 14:10 SL (Rec: 11/24/24 14:11 SL Desktop) Discharge Planning Assessment Assigned Discharge JULIA Fontana Market Research Executive DPOA/Assigned [place], Designee Name Contact Information [phone] Advance Directives? No History Provided By Patient Prior Living House Arrangements Household Members spouse Type of Drives own vehicle transporation used prior to admit Independent with ADL Yes 's Is patient alert and Yes oriented? Discharge Plan Home Referrals Initiated None needed Review Status In Process Please Provide Date 11/24/24 Initial DC Assessment Was Performed Next Review Type Continued Stay Review Pre-Anesthesia Assessment Start: 11/18/24 09:02 Freq: Status: Complete Protocol: Document 11/18/24 09:02 CAB (Rec: 11/18/24 09:16 CAB [id number]) Pre-Anesthesia Assessment PAC Comment Chart review 11/18/24 Patient Information Chart Review Reviewed Via Primary Care Yazmin Shannon Provider Seen Specialist in Yes Last 12 Months Specialist Seen Director Of Field Sales,Urologist Primary Language Monegasque Height 177.8 cm Weight 106.594 kg Body Mass Index (BMI 33.7 ) Hearing Ability Normal Visual Impairment No Limitations Visual Assist None Dentition Type Teeth, Natural Present Barriers to Learning None Hx Anesthesia No Reactions Anesthesia Review No Requested Security Police Officer No alcohol intake current Alcohol intake a few times a week frequency Smoking Status Never smoker Substance Use Type [ does not use #R] Patient is No completely paralyzed or completely immobile Mental Status Oriented to own ability Is patient on oxygen No ? Hx Sleep Apnea No Currently Taking a No Beta [place] Anti-Coagulant No Therapy Cardiac Testing No Hx Pacemaker/ICD No Pacemaker Rep No Required? Cardiac Clearance No Received Bladder Pattern Incontinent, Stress Urinary Catheter No Present Hx Urinary Self No Catheterization Diabetes No Patient No Lactating No Marital Status Lives With spouse Patient Discharge Return Home Plan Description
== END 2024-11-24 12:30 | disposition home or self-care (01) ==
LOC: OR 12:15 → AC 17:48
PROVIDERS: PCP Physician Assistant; Referring Provider Obstetrics & Gynecology Gynecology; Visit Provider Obstetrics & Gynecology Gynecology
PROC: 0USG4ZZ Reposition Vagina, Percutaneous Endoscopic Approach (ICD-10-PCS; CPT 57425; principal; 2024-11-23 07:45)
PROC: 0TSD0ZZ Reposition Urethra, Open Approach (ICD-10-PCS; CPT 57425; 2024-11-23 07:45)
DX: N99.3 Prolapse of vaginal vault after hysterectomy (principal); N39.46 Mixed incontinence; N32.81 Overactive bladder; R35.1 Nocturia
CPT/HCPCS: 57425; 57288; S2900; 36415; 80053; 85025; C1781; A9270; C1771; J0689; J0690; J1100; J1171; J1885; J2405; J2704; J3010

== ENCOUNTER → 2024-12-28 08:07 | Outpatient (CLI) | payer MEDICARE, OTHER, SELFPAY ==
[2024-11-23 20:57] VITALS: BMI 32.3
--- NOTE | 2024-12-28 09:02 | DI.MRI.S_ITS ---
PROCEDURE: MR LUMBAR SPINE WO CON INDICATIONS: Left Hip Flexor Weakness TECHNIQUE: Noncontrast sagittal T1 spin echo and T2 fast echo, sagittal STIR, and T2 fast spin echo through the lumbar spine. In cases with scoliosis, additional coronal T2 fast spin echo may be performed. COMPARISON: [facility], CR, XR LUMBAR SPINE MIN 4V, 12/11/2024, 13:16. FINDINGS: Image quality: Excellent. Alignment and Curvature: Mild, grade 1, 4 mm, anterolisthesis of L4 on L5. Stepwise, degenerative, grade 1, retrolisthesis of L1 on L2 and L2 on L3. Bone Marrow: Marrow is of normal overall signal. No acute vertebral body compression fractures. Degenerative ankylosis of the L5-S1 disc space. Spinal Cord: Conus medullaris terminates at the L1 level. Visualized cord demonstrates normal signal and size. Paraspinous Soft Tissues: No paravertebral masses. Normal size of the bilateral visualized psoas musculature. T12-L1: Degenerated , symmetrically, a bulging disc which indents anterior thecal sac but does not result in significant spinal canal stenosis. No neural foraminal stenosis. L1-L2: Degenerated , symmetrically, a bulging disc which indents anterior thecal sac but does not result in significant spinal canal stenosis. No neural foraminal stenosis. L2-L3: Degenerated , symmetrically, a bulging disc which indents anterior thecal sac but does not result in significant spinal canal stenosis. No neural foraminal stenosis. Bilateral facet arthrosis. L3-L4: Degenerated, symmetrically, bulging disc which indents anterior thecal sac but does not result in significant spinal canal stenosis. Bilateral facet arthrosis. Bilateral [id number] neural foraminal stenosis due to facet arthrosis. L4-L5: Degenerated disc. No spinal canal stenosis. Bilateral severe facet arthrosis. Mild bilateral neural foraminal stenosis due to facet arthrosis. L5-S1: Degenerated, ankylosed disc space. No spinal canal stenosis. Mild bilateral neural foraminal stenosis due to facet arthrosis. IMPRESSION: 1. Stepwise, degenerative, grade 1, retrolisthesis from L1-L3 and grade 1 anterolisthesis of L4 on L5. 2. Multilevel degenerated discs without significant spinal canal stenosis. 3. Bilateral [id number] neural foraminal stenosis at L3-4. Dictated by: Chino Bowman M.D. on 12/28/2024 at 11:07 Approved by: Chino Bowman M.D. on 12/28/2024 at 11:13
== END ==
LOC: MRI 08:07
PROVIDERS: PCP Physician Assistant; Referring Provider Physical Medicine & Rehabilitation; Visit Provider Physical Medicine & Rehabilitation
DX: M51.16 Intervertebral disc disorders with radiculopathy, lumbar region (principal); M43.16 Spondylolisthesis, lumbar region; M48.061 Spinal stenosis, lumbar region without neurogenic claudication; M16.9 Osteoarthritis of hip, unspecified; R26.81 Unsteadiness on feet; N99.3 Prolapse of vaginal vault after hysterectomy; N81.11 Cystocele, midline; N81.6 Rectocele; N39.3 Stress incontinence (female) (male)
CPT/HCPCS: 51701; 72148; 81001

== ENCOUNTER → 2024-12-28 10:20 | Outpatient (CLI) | payer MEDICARE, OTHER, SELFPAY ==
[2024-11-23 20:57] VITALS: BMI 32.3
[2024-12-28 11:57] LABS: Appearance Urine UA CLEAR; Bilirubin Urine UA NEGATIVE (NEGATIVE); Color Urine UA YELLOW; Glucose Urine UA NEGATIVE (Negative); Ketones Urine UA NEGATIVE (NEGATIVE); Leukocyte Esterase Urine UA NEGATIVE (NEGATIVE); Nitrite Urine UA NEGATIVE (Negative); Occult Blood Urine UA NEGATIVE (Negative); Protein Urine UA NEGATIVE (Negative); Specific Gravity Urine UA 1.015 (1.000-1.035); Urobilinogen Urine UA 1.0 E.U./dL (0.2); pH Urine UA 7.5 (4.5-8.0)
[2024-12-28 12:04] LABS: Culture Indicated Urine Cult Not Indicated
== END ==
PROVIDERS: PCP Physician Assistant; Visit Provider Obstetrics & Gynecology Gynecology
DX: N81.11 Cystocele, midline (principal); N81.6 Rectocele; N39.3 Stress incontinence (female) (male)
CPT/HCPCS: 81001

== ENCOUNTER 2025-03-09 12:18 | Outpatient (CLI) | payer MEDICARE, OTHER, SELFPAY ==
[2024-11-23 20:57] VITALS: BMI 32.3
[2025-03-09] VITALS (10 sets, daily range): BP systolic 136–166; BP diastolic 85–102; PULSE 70–91; RESP 14–18; TEMP 36.6; O2SAT 97–100
[2025-03-09] MEDS: MIDAZOLAM 2 MG/2 ML VIAL IV (13:29)
[2025-03-09] MEDS: LIDOCAINE 1% 20 ML 5 ML INJ (13:39)
--- NOTE | 2025-03-09 13:55 | PM.PROC.IR.1 ---
Date/Time/Diagnoses Date of procedure: 03/09/25 Time of procedure: 13:55 Pre-procedure diagnosis: FACET ARTHROPATHY Post-procedure diagnosis: same Procedure Notes Procedure: 1. BILATERAL L3, L4 AND L5 DIAGNOSTIC MB BLOCKS Indications: Brandie is referred by NNAMDI Shannon for treatment of Bilateral Axial LBP. Physician: Yasmany Couch Total Fluoroscopy time (seconds): 13 Total sedation minutes: 19 Complications: none Procedure in detail & Post-procedure care: DESCRIPTION OF PROCEDURE Fluoroscopically guided, contrast-controlled bilateral L3, L4 and L5 medial branch blocks with 0.5cc of 0.5% Marcaine. Following review of allergy and review of potential side effects and complications, including, but not necessarily limited to, infection, allergic reaction, local tissue breakdown, nerve injury, paralysis, stroke and possible , the patient indicated that the patient understood and agreed to proceed. An informed consent document was signed by the patient, witnessed by a nurse, and placed in the patient's chart. After review of previous anaesthesic history and IV conscious sedation the patient was deemed safe to proceed with today's procedure with IV conscious sedation as ASA class II designation. Safety time-out was performed to confirm patient ID, procedure to be performed and site of procedure. IV sedation was accomplished with a combination of 2mg of Versed was administered by the RN after DO order, titrated to patient comfort during the course of the procedure while the patient remained responsive to all verbal commands In the prone position, following sterile prep and drape of the lumbar region, the right L3, L4 and L5 anatomical location of the medial branch of the dorsal ramus was identified fluoroscopically. Subsequently an anesthetic skin wheal using 1% lidocaine solution was initiated at each of the anatomical spots. Subsequently then a 22-gauge 3.5-inch spinal needle was atraumatically introduced and advanced under fluoroscopic guidance at each of the corresponding sites at the right L3, L4 and L5 MB. After negative aspiration, 0.2cc of Isovue 200 was injected, confirming placement without vascular or intrathecal uptake. Subsequently then 0.5cc of 0.5% Marcaine solution was injected at each of the corresponding sites at the right L3, L4 and L5 medial branch locations. The identical procedure was replicated on the left. The patient tolerated the procedure well without signs or symptoms of complications. The patient tolerated the procedure well without signs or symptoms of complications prior to transfer to the recovery area continued monitoring without incident. Post-procedure, the patient was monitored initiating provocative activities to measure the amount of relief from block of the facetogenic pain. The patient reported a VAS of 7 prior to the procedure and a post-procedure VAS of 1. It has been a pleasure to assist in the diagnostic and therapeutic care of your patient. POST OP INSTRUCTIONS The patient was provided with a Pain Log to complete over the next several hours and subsequent days prior to the patient's follow up with the ordering physician. If the patient has broadcast checker relief to the solution applied, then they may be a candidate for medial branch rhizotomy. The patient is aware, was provided, once again, with a Pain Log and will follow up with the referring physician for review and clinical correlation
== END 2025-03-09 14:15 | disposition home or self-care (01) ==
LOC: RAD 12:19
PROVIDERS: PCP Physician Assistant; Referring Provider Physician Assistant; Visit Provider Physical Medicine & Rehabilitation
DX: M47.816 Spondylosis without myelopathy or radiculopathy, lumbar region (principal)
CPT/HCPCS: 64493; 64494; 99152; J2250